=== PATIENT | female | born 1975 | race Asian ===

== ENCOUNTER 2022-08-23 21:08 | Inpatient (IN) | payer MEDICAID ==
[~2022-08-23] VITALS: Ht 165.1 cm; Wt 39.9 kg
[2022-08-23] MEDS ORDERED: SODIUM CHLORIDE 0.9% 1000ML BAG (SEPSIS BOLUS) IV ONE (21:45)
[2022-08-23] MEDS ORDERED: ONDANSETRON HCL 4MG/2ML INJ IV ONE (21:45)
[2022-08-23 22:51] LABS: BASOPHILS % 0.2 % (0.0-2.0); HEMATOCRIT. 33.5 % (36.0-48.0); HEMOGLOBIN. 10.6 g/dL (12.0-16.0); LYMPHOCYTES % 7.8 % (20.0-50.0); MEAN CORPUSCULAR HEMOGLOBIN 24.8 pg (28.0-32.0); MEAN CORPUSCULAR VOLUME 78.1 fL (81.0-99.0); MEAN PLATELET VOLUME 8.2 fl (7.4-10.4); MONOCYTES % 3.5 % (2.0-8.0); NEUTROPHILS % 88.5 % (40.0-76.0); PLATELET 212 x1000/uL (130-400); RED BLOOD CELL COUNT 4.29 mill/uL (4.2-5.4); RED CELL DISTRIBUTION WIDTH 31.2 % (11.6-14.6)
[2022-08-23 22:57] LABS: CHLORIDE 108 mEq/L (98-107)
[2022-08-23 22:59] LABS: INR 0.9; PROTHROMBIN TIME 10.2 sec (9.6-11.0)
[2022-08-23 23:23] LABS: HCG SCREEN NEGATIVE
[2022-08-23 23:54] LABS: PLATELET ESTIMATE NORMAL
[2022-08-24] MEDS ORDERED: ALBUMIN HUMAN 12.5GM/50ML (25%) IV NR
[2022-08-24] MEDS ORDERED: IOHEXOL-300 100 ML BOTTLE ONE (01:29)
[2022-08-24] MEDS: SODIUM CHLORIDE 0.9% 1,000 ML IV SCH ×2 (05:24→15:00)
[2022-08-24 05:56] VITALS: BP 138/73
[2022-08-24 08:00] VITALS: BP 109/77
[2022-08-24 12:00] VITALS: BP 96/63
[2022-08-24] MEDS ORDERED: ACETAMINOPHEN 325MG TABLET PO PRN (14:15)
[2022-08-24] MEDS ORDERED: DOCUSATE SODIUM 100MG CAPSULE PO PRN (14:15)
[2022-08-24] MEDS ORDERED: CLONIDINE 0.1MG TABLET PO PRN (14:15)
[2022-08-24] MEDS ORDERED: MAGNESIUM/ALUMINUM HYDROXIDE/SIMETHICONE 30ML UDC PO PRN (14:15)
[2022-08-24] MEDS ORDERED: ENOXAPARIN 30MG/0.3ML SYR SUBCUT SCH ×2 (14:30→18:00)
[2022-08-24] MEDS: DEXT 5%/0.45% NACL KCL 10MEQ/L 1,000 ML IV SCH (15:52)
[2022-08-24 16:00] VITALS: BP_SYST 71
[2022-08-24] MEDS ORDERED: BISACODYL 10MG SUPP PR NR (21:00)
[2022-08-25] MEDS: DEXT 5%/0.45% NACL KCL 10MEQ/L 1,000 ML IV SCH (03:35)
[2022-08-25 08:00] VITALS: BP 97/60
[2022-08-25] MEDS ORDERED: ALBUMIN HUMAN 12.5GM/50ML (25%) IV NR (08:00)
[2022-08-25] MEDS: PANTOPRAZOLE SODIUM 40 MG/VIAL IV SCH (08:42)
[2022-08-25 10:45] LABS: CHLORIDE 113 mEq/L (98-107); HEMATOCRIT. 31.8 % (36.0-48.0); MEAN CORPUSCULAR HEMOGLOBIN 24.5 pg (28.0-32.0); MEAN CORPUSCULAR VOLUME 78.1 fL (81.0-99.0); MEAN PLATELET VOLUME 7.1 fl (7.4-10.4); PLATELET 204 x1000/uL (130-400); RED BLOOD CELL COUNT 4.07 mill/uL (4.2-5.4)
[2022-08-25 11:04] LABS: HDL CHOLESTEROL 71 mg/dL (40-59); LDL CHOLESTEROL 41 mg/dL (5-100); PHOSPHORUS 3.7 mg/dL (2.5-4.9); T4 FREE 0.89 ng/dL (0.76-1.46)
[2022-08-25 12:00] VITALS: BP 96/58
[2022-08-25] MEDS: FLUOXETINE HCL 10 MG CAPSULE PO SCH (13:00)
[2022-08-25] MEDS ORDERED: SODIUM BICARBONATE 4% (2.4MEQ) 5ML VIAL IV ONE (13:07)
[2022-08-25] MEDS ORDERED: LIDOCAINE HCL 1% 10 MG/ML 10ML VIAL ONE (13:07)
[2022-08-25 16:00] VITALS: BP 103/55
[2022-08-25] MEDS: ALBUMIN HUMAN 12.5G/250ML (5%) IV NR ×2 (17:20→17:22)
[2022-08-25] MEDS: METOCLOPRAMIDE HCL 10MG/2ML VIAL IV SCH (18:00)
[2022-08-25] MEDS: QUETIAPINE FUMARATE 25MG TABLET PO SCH (20:54)
[2022-08-25] MEDS ORDERED: NALOXONE HCL 0.4MG/ML VIAL IV PRN (21:30)
[2022-08-26] MEDS: METOCLOPRAMIDE HCL 10MG/2ML VIAL IV SCH ×5 (00:43→23:42)
[2022-08-26] MEDS: DEXT 5%/0.45% NACL KCL 10MEQ/L 1,000 ML IV SCH ×2 (06:00→18:32)
[2022-08-26 08:00] VITALS: BP 156/102
[2022-08-26] MEDS: FLUOXETINE HCL 10 MG CAPSULE PO SCH (09:00)
[2022-08-26] MEDS: PANTOPRAZOLE SODIUM 40 MG/VIAL IV SCH (09:12)
[2022-08-26 11:47] LABS: HEMATOCRIT. 32.1 % (36.0-48.0); HEMOGLOBIN. 10.3 g/dL (12.0-16.0); MEAN CORPUSCULAR HEMOGLOBIN 24.7 pg (28.0-32.0); MEAN CORPUSCULAR VOLUME 76.8 fL (81.0-99.0); MEAN PLATELET VOLUME 7.3 fl (7.4-10.4); PLATELET 205 x1000/uL (130-400); RED BLOOD CELL COUNT 4.18 mill/uL (4.2-5.4); RED CELL DISTRIBUTION WIDTH 31.2 % (11.6-14.6)
[2022-08-26 11:52] LABS: CHLORIDE 113 mEq/L (98-107)
[2022-08-26 12:00] VITALS: BP 125/75
[2022-08-26 12:09] LABS: AMYLASE 102 IU/L (25-115)
[2022-08-26 14:24] LABS: PLATELET ESTIMATE NORMAL
[2022-08-26 15:27] LABS: PLATELET ESTIMATE NORMAL
[2022-08-26 16:00] VITALS: BP 131/91
[2022-08-26 20:00] VITALS: BP 100/56
[2022-08-26] MEDS: QUETIAPINE FUMARATE 25MG TABLET PO SCH (20:42)
[2022-08-27] VITALS: BP 118/87
[2022-08-27 04:00] VITALS: BP 102/60
[2022-08-27] MEDS: METOCLOPRAMIDE HCL 10MG/2ML VIAL IV SCH ×3 (05:06→18:30)
[2022-08-27] MEDS: DEXT 5%/0.45% NACL KCL 10MEQ/L 1,000 ML IV SCH ×2 (05:09→21:52)
[2022-08-27] MEDS: PANTOPRAZOLE SODIUM 40 MG/VIAL IV SCH (08:53)
[2022-08-27] MEDS: FLUOXETINE HCL 10 MG CAPSULE PO SCH ×2 (08:54→13:53)
[2022-08-27] MEDS: ONDANSETRON HCL 4MG/2ML INJ IV PRN ×2 (08:54→18:30)
[2022-08-27 20:00] VITALS: BP 112/63
[2022-08-27] MEDS: QUETIAPINE FUMARATE 25MG TABLET PO SCH (21:00)
[2022-08-28] VITALS: BP 114/75
[2022-08-28] MEDS: METOCLOPRAMIDE HCL 10MG/2ML VIAL IV SCH ×3 (00:28→17:07)
[2022-08-28 03:59] VITALS: BP 110/72
[2022-08-28 08:00] VITALS: BP 126/76
[2022-08-28 08:08] LABS: HEMATOCRIT. 30.6 % (36.0-48.0); LYMPHOCYTES % 10.1 % (20.0-50.0); MEAN CORPUSCULAR HEMOGLOBIN 25.3 pg (28.0-32.0); MEAN CORPUSCULAR VOLUME 77.8 fL (81.0-99.0); MEAN PLATELET VOLUME 8.3 fl (7.4-10.4); MONOCYTES % 5.7 % (2.0-8.0); NEUTROPHILS % 84.2 % (40.0-76.0); PLATELET 113 x1000/uL (130-400); RED BLOOD CELL COUNT 3.94 mill/uL (4.2-5.4); RED CELL DISTRIBUTION WIDTH 31.5 % (11.6-14.6)
[2022-08-28 10:08] LABS: CHLORIDE 113 mEq/L (98-107)
[2022-08-28] MEDS: ONDANSETRON HCL 4MG/2ML INJ IV PRN (10:25)
[2022-08-28] MEDS: PANTOPRAZOLE SODIUM 40 MG/VIAL IV SCH (10:25)
[2022-08-28] MEDS: HYDROCODONE/ACETAMINOPHEN 5/325MG TABLET PO PRN ×2 (10:28→17:10)
[2022-08-28] MEDS: FLUOXETINE HCL 10 MG CAPSULE PO SCH (10:28)
[2022-08-28] MEDS: DEXT 5%/0.45% NACL KCL 10MEQ/L 1,000 ML IV SCH (10:29)
[2022-08-28 10:37] LABS: PHOSPHORUS 3.4 mg/dL (2.5-4.9)
[2022-08-28 12:00] VITALS: BP 109/68
[2022-08-28 16:12] VITALS: BP 106/67
[2022-08-28 20:00] VITALS: BP 108/70
[2022-08-28] MEDS ORDERED: DEXTROSE 50% WATER 50ML SYRINGE IV NR (20:15)
[2022-08-28] MEDS ORDERED: DEXTROSE 50% WATER 50ML SYRINGE IV ONE (20:17)
[2022-08-28] MEDS: QUETIAPINE FUMARATE 25MG TABLET PO SCH (21:00)
[2022-08-28 22:44] LABS: BG BASE EXCESS -5.9 mmol/L (-2.0-2.0); BG CARBOXYHEMOGLOBIN 0.5 % (0.5-1.5); BG DEOXYHEMOGLOBIN 3.2 % (0.0-5.0); BG FRACTION INSPIRED OXYGEN 100; BG HCO3 ACT 19.1 mmol/L (22.0-26.0); BG METHEMOGLOBIN 0.3 % (0.0-1.5); BG OXYGEN SATURATION 96.8 % (92.0-98.5); BG PCO2 35.6 mmHg (35.0-45.0); BG PH 7.347 (7.350-7.450); BG PO2 103.8 mmHg (75.0-100.0); BG SAMPLE SITE RIGHT RADIAL; BG TOTAL HEMOGLOBIN 10.4 g/dL (12.0-18.0); BG VENT MODE MASK - NRB
[2022-08-29] VITALS (11 sets, daily range): BP systolic 91–112; BP diastolic 62–85
[2022-08-29] MEDS: DEXT 5%/0.45% NACL KCL 10MEQ/L 1,000 ML IV SCH (00:55)
[2022-08-29] MEDS: METOCLOPRAMIDE HCL 10MG/2ML VIAL IV SCH ×4 (01:45→17:39)
[2022-08-29] MEDS ORDERED: DEXTROSE 50% WATER 50ML SYRINGE IV ONE (06:22)
[2022-08-29] MEDS ORDERED: DEXTROSE 50% WATER 50ML SYRINGE IV PRN (06:30)
[2022-08-29 07:23] LABS: HEMATOCRIT. 35.2 % (36.0-48.0); HEMOGLOBIN. 11.3 g/dL (12.0-16.0); MEAN CORPUSCULAR VOLUME 77.5 fL (81.0-99.0); MEAN PLATELET VOLUME 8.5 fl (7.4-10.4); MONOCYTES % 2.5 % (2.0-8.0); NEUTROPHILS % 86.5 % (40.0-76.0); PLATELET 113 x1000/uL (130-400); RED BLOOD CELL COUNT 4.53 mill/uL (4.2-5.4); RED CELL DISTRIBUTION WIDTH 31.6 % (11.6-14.6)
[2022-08-29] MEDS: PANTOPRAZOLE SODIUM 40 MG/VIAL IV SCH (09:00)
[2022-08-29] MEDS: FLUOXETINE HCL 10 MG CAPSULE PO SCH (09:00)
[2022-08-29] MEDS: DEXT 10% WATER 1,000 ML IV SCH ×2 (09:00→20:23)
[2022-08-29] MEDS: BLOOD SUGAR DIAGNOSTIC STRIP TEST SCH ×2 (12:00→17:37)
[2022-08-29 13:31] LABS: CHLORIDE 113 mEq/L (98-107)
[2022-08-29 15:11] LABS: PHOSPHORUS 3.6 mg/dL (2.5-4.9)
[2022-08-29] MEDS: QUETIAPINE FUMARATE 25MG TABLET PO SCH (20:23)
[2022-08-30] VITALS (10 sets, daily range): BP systolic 99–134; BP diastolic 71–94
[2022-08-30] MEDS: METOCLOPRAMIDE HCL 10MG/2ML VIAL IV SCH ×5 (00:26→23:46)
[2022-08-30] MEDS: BLOOD SUGAR DIAGNOSTIC STRIP TEST SCH ×5 (06:25→23:52)
[2022-08-30 06:43] LABS: HEMATOCRIT. 34.2 % (36.0-48.0); MEAN CORPUSCULAR VOLUME 77.4 fL (81.0-99.0); MEAN PLATELET VOLUME 8.2 fl (7.4-10.4); PLATELET 64 x1000/uL (130-400); RED BLOOD CELL COUNT 4.42 mill/uL (4.2-5.4); RED CELL DISTRIBUTION WIDTH 30.9 % (11.6-14.6)
[2022-08-30 07:35] LABS: CHLORIDE 106 mEq/L (98-107)
[2022-08-30 08:05] LABS: PHOSPHORUS 3.1 mg/dL (2.5-4.9)
[2022-08-30] MEDS: DEXT 10% WATER 1,000 ML IV SCH ×2 (08:57→20:58)
[2022-08-30] MEDS: FLUOXETINE HCL 10 MG CAPSULE PO SCH (08:57)
[2022-08-30] MEDS: PANTOPRAZOLE SODIUM 40 MG/VIAL IV SCH (08:57)
[2022-08-30 18:46] LABS: PLATELET ESTIMATE DECREASED
[2022-08-30] MEDS: QUETIAPINE FUMARATE 25MG TABLET PO SCH (20:58)
[2022-08-30] MEDS ORDERED: TOTAL PARENTERAL NUTRITION 2,000 ML IV SCH (21:00)
[2022-08-31] VITALS (8 sets, daily range): BP systolic 77–124; BP diastolic 46–85
[2022-08-31] MEDS: INSULIN LISPRO 100 UNITS/ML SUBCUT SCH ×5 (01:52→17:50)
[2022-08-31] MEDS: METOCLOPRAMIDE HCL 10MG/2ML VIAL IV SCH ×3 (05:37→17:56)
[2022-08-31] MEDS: BLOOD SUGAR DIAGNOSTIC STRIP TEST SCH ×3 (06:00→17:50)
[2022-08-31] MEDS ORDERED: BLOOD SUGAR DIAGNOSTIC STRIP TEST SCH (06:00)
[2022-08-31] MEDS ORDERED: DEXTROSE 50% WATER 50ML SYRINGE IV PRN (06:00)
[2022-08-31 08:00] LABS: HEMATOCRIT. 29.1 % (36.0-48.0); HEMOGLOBIN. 9.5 g/dL (12.0-16.0); MEAN CORPUSCULAR HEMOGLOBIN 25.4 pg (28.0-32.0); MEAN CORPUSCULAR VOLUME 77.3 fL (81.0-99.0); RED BLOOD CELL COUNT 3.76 mill/uL (4.2-5.4); RED CELL DISTRIBUTION WIDTH 30.4 % (11.6-14.6)
[2022-08-31 08:34] LABS: INR 1.1
[2022-08-31] MEDS: PANTOPRAZOLE SODIUM 40 MG/VIAL IV SCH (08:52)
[2022-08-31] MEDS: FLUOXETINE HCL 10 MG CAPSULE PO SCH (08:53)
[2022-08-31] MEDS: THIAMINE HCL 100MG TABLET PO SCH (08:53)
[2022-08-31] MEDS ORDERED: MULTIVITAMINS,THER W-MINERALS TABLET PO SCH (09:00)
[2022-08-31 09:15] LABS: PHOSPHORUS 1.5 mg/dL (2.5-4.9)
[2022-08-31 09:28] LABS: CHLORIDE 106 mEq/L (98-107)
[2022-08-31] MEDS ORDERED: POTASSIUM CHLORIDE 20MEQ/PACKET PO NR (10:30)
[2022-08-31] MEDS ORDERED: KCL 20MEQ/100ML PREMIX 100 ML IV ONE (10:45)
[2022-08-31] MEDS ORDERED: INSULIN LISPRO 100 UNITS/ML SUBCUT NR (17:30)
[2022-08-31 18:11] LABS: MEAN PLATELET VOLUME 8.5 fl (7.4-10.4)
[2022-08-31 18:18] LABS: PLATELET ESTIMATE MARKEDLY DECREASED
[2022-08-31] MEDS ORDERED: MORPHINE SULFATE 2 MG/ML CPJ (NOT FOR IM USE) IV PRN (19:00)
[2022-08-31] MEDS ORDERED: NALOXONE HCL 0.4MG/ML VIAL IV PRN (19:00)
[2022-08-31] MEDS ORDERED: TOTAL PARENTERAL NUTRITION 2,000 ML IV SCH (21:00)
[2022-08-31] MEDS ORDERED: FAT EMULSIONS 500 ML IV SCH (21:00)
[2022-08-31] MEDS ORDERED: INSULIN GLARGINE 100 UNITS/ML SUBCUT SCH (22:00)
[2022-08-31 23:06] LABS: BG BASE EXCESS -13.8 mmol/L (-2.0-2.0); BG CARBOXYHEMOGLOBIN 2.1 % (0.5-1.5); BG DEOXYHEMOGLOBIN 6.8 % (0.0-5.0); BG HCO3 ACT 17.1 mmol/L (22.0-26.0); BG METHEMOGLOBIN 0.2 % (0.0-1.5); BG OXYHEMOGLOBIN 90.9 % (94.0-97.0); BG PCO2 70.1 mmHg (35.0-45.0); BG PH 7.005 (7.350-7.450); BG PO2 97.4 mmHg (75.0-100.0); BG SAMPLE SITE RIGHT RADIAL; BG TOTAL HEMOGLOBIN 8.9 g/dL (12.0-18.0); BG VENT MODE MASK - NRB
[2022-08-31] MEDS ORDERED: NOREPINEPHRINE 8 MG in DEXT 5% WATER 242 ML IV PRN (23:30)
[2022-09-01] VITALS (29 sets, daily range): BP systolic 41–138; BP diastolic 22–74
[2022-09-01] MEDS ORDERED: MIDAZOLAM HCL 100 MG in SODIUM CHLORIDE 0.9% 80 ML IV PRN ×2
[2022-09-01] MEDS: QUETIAPINE FUMARATE 25MG TABLET PO SCH (00:20)
[2022-09-01] MEDS: BLOOD SUGAR DIAGNOSTIC STRIP TEST SCH ×5 (00:21→11:15)
[2022-09-01] MEDS: METOCLOPRAMIDE HCL 10MG/2ML VIAL IV SCH (00:25)
[2022-09-01] MEDS: INSULIN LISPRO 100 UNITS/ML SUBCUT SCH (00:27)
[2022-09-01 01:35] LABS: BG BASE EXCESS -16.2 mmol/L (-2.0-2.0); BG CARBOXYHEMOGLOBIN 2.1 % (0.5-1.5); BG DEOXYHEMOGLOBIN 2.1 % (0.0-5.0); BG FRACTION INSPIRED OXYGEN 100; BG METHEMOGLOBIN 0.2 % (0.0-1.5); BG OXYGEN SATURATION 97.9 % (92.0-98.5); BG OXYHEMOGLOBIN 95.6 % (94.0-97.0); BG PCO2 45.5 mmHg (35.0-45.0); BG PH 7.074 (7.350-7.450); BG PO2 144.7 mmHg (75.0-100.0); BG SAMPLE SITE RIGHT RADIAL; BG TOTAL HEMOGLOBIN 9.2 g/dL (12.0-18.0); BG VENT MODE VENT - AC
[2022-09-01] MEDS ORDERED: SODIUM BICARBONATE 8.4% 1 MEQ/ML 50ML SYR IV NR (01:45)
[2022-09-01] MEDS ORDERED: NOREPINEPHRINE 32 MG in DEXT 5% WATER 218 ML IV PRN (03:46)
[2022-09-01] MEDS ORDERED: PHENYLEPHRINE 100 MG in DEXT 5% WATER 240 ML IV PRN (04:00)
[2022-09-01] MEDS ORDERED: VASOPRESSIN 20 UNIT in SODIUM CHLORIDE 0.9% 99 ML IV PRN (04:00)
[2022-09-01] MEDS ORDERED: DEXTROSE 50% WATER 50ML SYRINGE IV PRN ×2 (06:15)
[2022-09-01] MEDS ORDERED: INSULIN REGULAR 100U/100ML PMX 100 ML IV SCH (06:15)
[2022-09-01] MEDS ORDERED: INSULIN REGULAR (DRIP) 100 UNITS in SODIUM CHLORIDE 0.9% 99 ML IV SCH (06:15)
[2022-09-01] MEDS: EPINEPHRINE 10 MG in SODIUM CHLORIDE 0.9% 240 ML IV PRN ×2 (07:01→11:10)
[2022-09-01] MEDS ORDERED: CEFEPIME 1,000 MG in DEXTROSE 5% WATER 50 ML IV SCH (08:00)
[2022-09-01 08:14] LABS: BG BASE EXCESS -23.5 mmol/L (-2.0-2.0); BG CARBOXYHEMOGLOBIN 3.1 % (0.5-1.5); BG DEOXYHEMOGLOBIN 23.8 % (0.0-5.0); BG FRACTION INSPIRED OXYGEN 100; BG HCO3 ACT 7.4 mmol/L (22.0-26.0); BG METHEMOGLOBIN 0.3 % (0.0-1.5); BG OXYGEN SATURATION 75.4 % (92.0-98.5); BG OXYHEMOGLOBIN 72.8 % (94.0-97.0); BG PH 6.877 (7.350-7.450); BG PO2 61.3 mmHg (75.0-100.0); BG SAMPLE SITE RIGHT BRACHIAL; BG TOTAL HEMOGLOBIN 5.5 g/dL (12.0-18.0); BG VENT MODE VENT - AC
[2022-09-01] MEDS ORDERED: SODIUM BICARBONATE 150 MEQ in DEXTROSE 5% WATER 1,000 ML IV SCH (09:00)
[2022-09-01] MEDS: FLUOXETINE HCL 10 MG CAPSULE PO SCH (09:00)
[2022-09-01] MEDS: THIAMINE HCL 100MG TABLET PO SCH (09:00)
[2022-09-01 09:04] LABS: CHLORIDE 109 mEq/L (98-107)
[2022-09-01 09:09] LABS: PHOSPHORUS 1.8 mg/dL (2.5-4.9)
[2022-09-01 09:33] LABS: BETA HYDROXYBUTYRATE 0.1 mMol/L (0.0-0.3)
[2022-09-01] MEDS: PANTOPRAZOLE SODIUM 40 MG/VIAL IV SCH (10:29)
[2022-09-01] MEDS ORDERED: SODIUM PHOS,M-BASIC-D-BASIC 20 MM in DEXT 5% WATER 243.3333 ML IV ONE (12:00)
[2022-09-01] MEDS ORDERED: POTASSIUM PHOS,M-BASIC-D-BASIC 20 MMOL in DEXT 5% WATER 243.3333 ML IV NR (12:00)
[2022-09-02 07:19] LABS: PLATELET 34 x1000/uL (130-400)
== END 2022-09-01 11:22 | DRG 720 ==
LOC: ER 21:08 → MICUSO 23:48 → EDBEDREQTM 23:51 → EDBEDREQ 23:51 → 6EST 08-24 04:35 → 5EST 08-29 00:30 → CVICU 08-31 23:11
PROVIDERS: ADMIT Internal Medicine; ATTEND Internal Medicine
PROC: 0W9G3ZZ Drainage of Peritoneal Cavity, Percutaneous Approach (ICD-10-PCS; 2022-08-25)
PROC: 02HV33Z Insertion of Infusion Device into Superior Vena Cava, Percutaneous Approach (ICD-10-PCS; 2022-08-30)
PROC: B548ZZA Ultrasonography of Superior Vena Cava, Guidance (ICD-10-PCS; 2022-08-30)
PROC: 5A1935Z Respiratory Ventilation, Less than 24 Consecutive Hours (ICD-10-PCS; principal; 2022-09-01)
PROC: 0BH17EZ Insertion of Endotracheal Airway into Trachea, Via Natural or Artificial Opening (ICD-10-PCS; 2022-09-01)
PROC: 5A12012 Performance of Cardiac Output, Single, Manual (ICD-10-PCS; 2022-09-01)
DX: A41.9 Sepsis, unspecified organism (principal); R65.21 Severe sepsis with septic shock; G93.40 Encephalopathy, unspecified; R18.0 Malignant ascites; E87.20 Acidosis, unspecified; J96.01 Acute respiratory failure with hypoxia; J96.02 Acute respiratory failure with hypercapnia; E43 Unspecified severe protein-calorie malnutrition; R64 Cachexia; D69.6 Thrombocytopenia, unspecified; J18.9 Pneumonia, unspecified organism; C76.3 Malignant neoplasm of pelvis; R62.7 Adult failure to thrive; D50.9 Iron deficiency anemia, unspecified; C78.6 Secondary malignant neoplasm of retroperitoneum and peritoneum; S01.112A Laceration without foreign body of left eyelid and periocular area, initial encounter; F32.9 Major depressive disorder, single episode, unspecified; E16.2 Hypoglycemia, unspecified; F51.04 Psychophysiologic insomnia; Z66 Do not resuscitate; S05.12XA Contusion of eyeball and orbital tissues, left eye, initial encounter; S01.81XA Laceration without foreign body of other part of head, initial encounter; Z20.822 Contact with and (suspected) exposure to COVID-19; W18.39XA Other fall on same level, initial encounter; Y92.89 Other specified places as the place of occurrence of the external cause; Z80.0 Family history of malignant neoplasm of digestive organs; Z91.81 History of falling; Z85.038 Personal history of other malignant neoplasm of large intestine; Y93.89 Activity, other specified; Y99.8 Other external cause status; Z68.1 Body mass index [BMI] 19.9 or less, adult
CPT/HCPCS: 31500; 36415; 36573; 36600; 49083; 71045; 74177; 80048; 80053; 80061; 80076; 82010; 82140; 82150; 82375; 82378; 82533; 82805; 82962; 83036; 83605; 83615; 83735; 84100; 84145; 84439; 84443; 84478; 84484; 84703; 85025; 86301; 86304; 87070; 87077; 87186; 87389; 87426; 88108; 92950; 94003; 97162; 99285; C1725; C1893; C9113; J0692; J1815; J2405; J2765; J3480; J3490; J7030; J7050; J7060; J7070; P9041; P9047; Q9967; A4315